=== PATIENT | female | born 1965 | race Caucasian/White ===

== ENCOUNTER → 2016-10-20 | Outpatient (REF) | payer OTHER ==
[~2016-10-20] MED LIST: IBUP800T23 PO; PERC5TAB6 PO; SIMV20TA2 PO; ZYVO100T PO
== END ==
LOC: M SFHCPLAZ 16:41
PROVIDERS: ATTEND Student in an Organized Health Care Education/Training Program
DX: Z12.4 Encounter for screening for malignant neoplasm of cervix (principal); R87.610 Atypical squamous cells of undetermined significance on cytologic smear of cervix (ASC-US)

== ENCOUNTER → 2016-11-16 | Outpatient (CLI) | payer OTHER ==
--- NOTE | 2016-11-16 12:20 | REPMRS ---
Patient History The patient states she has not had a clinical breast exam in over a year. Patient is postmenopausal. No known family history of cancer. Digital Woman Screen Mammo: November 16, 2016 - Exam #: [id number] Bilateral CC and MLO view(s) were taken. Technologist: Monica Jiménez, Technologist No prior studies available for comparison. FINDINGS: The breast tissue is heterogeneously dense. This may lower the sensitivity of mammography. New baseline exam, prior study was film screen exam in and no longer available. There is a moderate amount of residual fibroglandular tissue which is fairly symmetric. This may reduce the sensitivity of mammography. There is no dominant mass, architectural distortion, or clustered microcalcification typical of malignancy. Scattered lymph nodes are seen in the axilla. There are scattered, small, benign calcifications of doubtful clinical significance. ASSESSMENT: BI-RADS/ACR category 2 mammogram. Benign finding(s). Recommendation Routine screening mammogram in 1 year (for women over age 40). This mammogram was interpreted with the aid of an FDA-approved computer-aided dectection system. A. Negative x-ray reports should not delay biopsy if a dominant or clinically suspicious mass is present. B. Four to eight percent of cancers are not identified by mammography. C. Adenosis and dense breast may obscure an underlying neoplasm. Electronically Signed By: Juan Daniel Holloway MD 11/16/16 1796
== END ==
LOC: M WHC 11:26
PROVIDERS: ATTEND Family Medicine
DX: Z12.31 Encounter for screening mammogram for malignant neoplasm of breast (principal)

== ENCOUNTER → 2016-11-30 | Outpatient (REF) | payer OTHER ==
[2016-11-30 14:04] LABS: FREE T4 0.21 NG/DL (0.76-1.46)
== END ==
LOC: M LAB REF 13:17
PROVIDERS: ATTEND Internal Medicine Nephrology
DX: E03.9 Hypothyroidism, unspecified (principal)

== ENCOUNTER 2016-12-19 07:51 | Outpatient (RCR) | payer OTHER | END 2016-12-23 | LOC: M OT 07:51 | PROVIDERS: ATTEND Orthopaedic Surgery | DX: Z51.89 Encounter for other specified aftercare (principal); L08.9 Local infection of the skin and subcutaneous tissue, unspecified ==

== ENCOUNTER → 2017-01-04 | Outpatient (REF) | payer OTHER ==
[2017-01-04 14:23] LABS: FREE T4 0.42 NG/DL (0.76-1.46)
== END ==
LOC: M LAB REF 13:02
PROVIDERS: ATTEND Internal Medicine Nephrology
DX: E03.9 Hypothyroidism, unspecified (principal)

== ENCOUNTER → 2017-02-07 | Outpatient (REF) | payer OTHER ==
[2017-02-07 19:22] LABS: FREE T4 0.6 NG/DL (0.76-1.46)
== END ==
LOC: M LAB REF 16:58
PROVIDERS: ATTEND Internal Medicine Nephrology
DX: E03.9 Hypothyroidism, unspecified (principal)

== ENCOUNTER → 2017-02-08 | Outpatient (REF) | payer OTHER | LOC: M SFHCPLAZ 13:08 | PROVIDERS: ATTEND Internal Medicine Infectious Disease | DX: Z22.322 Carrier or suspected carrier of Methicillin resistant Staphylococcus aureus (principal) ==

== ENCOUNTER → 2017-03-21 | Outpatient (REF) | payer OTHER ==
[2017-03-21 12:14] LABS: FREE T4 1.05 NG/DL (0.76-1.46)
== END ==
LOC: M SFHCPLAZ 08:55
PROVIDERS: ATTEND Family Medicine
DX: E03.9 Hypothyroidism, unspecified (principal)

== ENCOUNTER → 2017-05-03 | Outpatient (REF) | payer OTHER ==
[~2017-05-03] MED LIST changes: +IBUP1TAB7 PO; -IBUP800T23 PO; +PERC5TAB12 PO; -PERC5TAB6 PO
[2017-05-03 17:04] LABS: FREE T4 1.09 NG/DL (0.76-1.46)
== END ==
LOC: M SFHCPLAZ 09:27
PROVIDERS: ATTEND Family Medicine
DX: E03.9 Hypothyroidism, unspecified (principal)

== ENCOUNTER → 2017-05-11 | Outpatient (REF) | payer OTHER ==
[2017-05-11 19:18] LABS: FREE T4 1.28 NG/DL (0.76-1.46)
== END ==
LOC: M LAB REF 18:39
PROVIDERS: ATTEND Internal Medicine Nephrology
DX: E03.9 Hypothyroidism, unspecified (principal)

== ENCOUNTER → 2017-07-12 | Outpatient (REF) | payer OTHER ==
[2017-07-12 13:05] LABS: FREE T4 1.13 NG/DL (0.76-1.46)
== END ==
LOC: M SFHCPLAZ 09:42
PROVIDERS: ATTEND Family Medicine
DX: E03.9 Hypothyroidism, unspecified (principal)

== ENCOUNTER → 2017-08-11 | Outpatient (REF) | payer OTHER ==
[2017-08-11 18:55] LABS: BACTERIA, URINE MOD AMOUNT; SQUAMOUS EPITHELIAL CELL URINE LARGE AMOUNT /hpf (SMALL AMT)
[2017-08-11 18:56] LABS: HYALINE CAST, URINE NONE SEEN /lpf (0-1); MICROSCOPIC EXAM PERFORMED
[2017-08-11 20:11] LABS: FREE T4 0.99 NG/DL (0.76-1.46)
== END ==
LOC: M LAB REF 17:09
PROVIDERS: ATTEND Internal Medicine Nephrology
DX: E03.9 Hypothyroidism, unspecified (principal)

== ENCOUNTER → 2017-08-23 | Outpatient (REF) | payer OTHER | LOC: M SMT 13:12 | PROVIDERS: ATTEND Nurse Practitioner Family | DX: R31.29 Other microscopic hematuria (principal) ==

== ENCOUNTER → 2017-08-31 | Outpatient (CLI) | payer OTHER ==
[~2017-08-31] MED LIST changes: +ISOVUE-370 76% 100ML VIAL (Q9967) As Ordered ONE
--- NOTE | 2017-09-01 08:28 | REP ---
CT of the abdomen and pelvis without and with IV contrast. There is no bowel contrast. After IV contrast dual phase imaging is performed initially during the renal cortical enhancement phase and later during the renal excretion phase of enhancement. Comparison is 06/25/2010. There are no renal, ureteral or bladder calculi. There is no hydronephrosis. 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 There are no renal solid or cystic masses. There are is no hydronephrosis. There is no perinephric stranding. There are no bladder calculi. No bladder polyps or masses are identified by CT. The visualized lung arevalo are unremarkable. The hepatic parenchyma, gallbladder, pancreas and spleen are normal size and unremarkable. The adrenals, abdominal aorta, bowel and mesentery are unremarkable. A tiny fat containing umbilical hernia is incidentally identified. There is no bowel distension or obstruction. The appendix has a normal appearance. Pelvis: The uterus and adnexa are unremarkable. Previously there were bilateral ovarian cysts. These are no longer identified. There is no diverticulosis or diverticulitis. There is mild wall thickening of the sigmoid colon. This is compatible with colitis in the appropriate clinical setting. Impression: There is wall thickening of the sigmoid colon compatible with colitis in the appropriate clinical setting. There is no hydronephrosis. There are no renal, ureteral or bladder calculi. There are no renal or bladder masses. There is no ascites or adenopathy. The gallbladder, appendix, uterus and adnexa are unremarkable. Signed by Luis Enrique Michael MD 09/01/2017 08:20 A
== END ==
LOC: M RAD 09:00
PROVIDERS: ATTEND Nurse Practitioner Family
DX: R31.29 Other microscopic hematuria (principal); R93.5 Abnormal findings on diagnostic imaging of other abdominal regions, including retroperitoneum
CPT/HCPCS: 74178; Q9967

== ENCOUNTER → 2017-11-01 | Outpatient (REF) | payer OTHER | LOC: M SFHCPLAZ 08:32 | DX: Z00.00 Encounter for general adult medical examination without abnormal findings (principal) ==

== ENCOUNTER → 2017-11-17 | Outpatient (CLI) | payer OTHER | LOC: M WHC 07:54 | DX: Z12.39 Encounter for other screening for malignant neoplasm of breast (principal) | CPT/HCPCS: 77067 ==

== ENCOUNTER → 2018-05-23 | Outpatient (REF) | payer OTHER | LOC: M SFHCPLAZ 09:10 | DX: E03.9 Hypothyroidism, unspecified (principal); E55.9 Vitamin D deficiency, unspecified | CPT/HCPCS: 84443 ==

== ENCOUNTER → 2019-01-21 | Outpatient (REF) | payer OTHER ==
[~2019-01-21] MED LIST changes: -ISOVUE-370 76% 100ML VIAL (Q9967) As Ordered ONE; -ZYVO100T PO; +ZYVO1TAB PO
[2019-01-21 15:56] LABS: FREE T4 0.79 NG/DL (0.76-1.46)
[2019-01-21 16:10] LABS: RUBELLA IgG QUALITATIVE IMMUNE (IMMUNE)
== END ==
LOC: M SFHCPLAZ 14:05
PROVIDERS: ATTEND Family Medicine
DX: Z02.1 Encounter for pre-employment examination (principal); E03.9 Hypothyroidism, unspecified

== ENCOUNTER → 2019-09-10 | Outpatient (REF) | payer OTHER ==
[~2019-09-10] MED LIST changes: -SIMV20TA2 PO; +SIMV20TA22 PO
[2019-09-10 16:02] LABS: CHOLESTEROL RISK RATIO 3.509 (<5); FREE T4 1.02 NG/DL (0.76-1.46); THYROID STIMULATING HORMONE 3.9 uIU/ML (0.358-3.740)
[2019-09-10 16:08] LABS: HEMOGLOBIN A1c 5.8 %
== END ==
LOC: M SFHCPLAZ 13:40
PROVIDERS: ATTEND Family Medicine
DX: Z13.220 Encounter for screening for lipoid disorders (principal); Z13.1 Encounter for screening for diabetes mellitus; E03.9 Hypothyroidism, unspecified

== ENCOUNTER 2019-10-16 09:49 | Day surgery (SDC) | payer OTHER ==
[~2019-10-16] VITALS: Ht 154.9 cm; Wt 70.2 kg
[~2019-10-16 09:49] MED LIST changes: +LEVO88TA3 PO; +LIDOCAINE 2% INJ 100 MG/5 ML SDV (FOR ANES.) As Ordered ONE; +NS 1,000 ML IV ONE; +VITA200028 PO
[2019-10-16] MEDS ORDERED: propofoL 200 MG/20 ML VIAL As Ordered ONE ×2 (10:48→11:34)
--- NOTE | 2019-10-16 11:44 | ROOR ---
Patient Name: Katie Martins Procedure Date: 10/16/2019 11:11 AM Date of : 1965 Age: 54 Room: [facility] Gender: Female Note Status: Finalized Procedure: Colonoscopy Indications: Screening for colorectal malignant neoplasm Providers: Luis Enrique Avina DO Referring MD: Trey Fournier Do, [facility] [place]ing Provider: Medicines: Propofol per Anesthesia Complications: No immediate complications. Estimated blood loss: Minimal. Procedure: Pre-Anesthesia Assessment: - Prior to the procedure, a History and Physical was performed, and patient medications and allergies were reviewed. The patient is competent. The risks and benefits of the procedure and the sedation options and risks were discussed with the patient. All questions were answered and informed consent was obtained. Patient identification and proposed procedure were verified by the physician, the nurse, the anesthesiologist and the injection mold technician in the endoscopy suite. Mental Status Examination: alert and oriented. Airway Examination: normal oropharyngeal airway and neck mobility. Respiratory Examination: clear to auscultation. CV Examination: normal. Prophylactic Antibiotics: The patient does not require prophylactic antibiotics. Prior Anticoagulants: The patient has taken no previous anticoagulant or antiplatelet agents. ASA Grade Assessment: II - A patient with mild systemic disease. After reviewing the risks and benefits, the patient was deemed in satisfactory condition to undergo the procedure. The anesthesia plan was to use monitored anesthesia care (MAC). Immediately prior to administration of medications, the patient was re-assessed for adequacy to receive sedatives. The heart rate, respiratory rate, oxygen saturations, blood pressure, adequacy of pulmonary ventilation, and response to care were monitored throughout the procedure. The physical status of the patient was re-assessed after the procedure. The Colonoscope was introduced through the anus and advanced to the cecum, identified by appendiceal orifice and ileocecal valve. The colonoscopy was performed without difficulty. The patient tolerated the procedure well. Findings: Non-bleeding internal hemorrhoids were found during retroflexion. The hemorrhoids were mild and Grade II (internal hemorrhoids that prolapse but reduce spontaneously). Five hyperplastic polyps were found in the sigmoid colon and ascending colon. The polyps were 3 to 7 mm in size. These polyps were removed with a jumbo cold forceps. Resection and retrieval were complete. Estimated blood loss was minimal. The exam was otherwise without abnormality on direct and retroflexion views. Impression: - Non-bleeding internal hemorrhoids. - Five 3 to 7 mm polyps in the sigmoid colon and in the ascending colon, removed with a jumbo cold forceps. Resected and retrieved. - The examination was otherwise normal on direct and retroflexion views. Recommendation: - Patient has a contact number available for emergencies. The signs and symptoms of potential delayed complications were discussed with the patient. Return to normal activities tomorrow. Written discharge instructions were provided to the patient. - Repeat colonoscopy in 3 - 5 years for surveillance based on pathology results. - Return to my office as previously scheduled. Luis Enrique Avina DO 10/16/2019 11:43:57 AM Electronically signed by Luis Enrique Avina DO Number of Addenda: 0 Note Initiated On: 10/16/2019 11:11 AM Estimated Blood Loss: Estimated blood loss was minimal.
[2019-10-16 12:11] VITALS: BP 117/85
== END 2019-10-16 12:13 | disposition home or self-care (01) ==
LOC: M OPP 09:49
PROVIDERS: ATTEND Surgery
DX: Z12.11 Encounter for screening for malignant neoplasm of colon (principal); D12.5 Benign neoplasm of sigmoid colon; D12.2 Benign neoplasm of ascending colon; K64.1 Second degree hemorrhoids; F17.210 Nicotine dependence, cigarettes, uncomplicated; Z79.899 Other long term (current) drug therapy; Z88.5 Allergy status to narcotic agent; Z88.8 Allergy status to other drugs, medicaments and biological substances

== ENCOUNTER → 2019-10-21 | Outpatient (CLI) | payer OTHER ==
[~2019-10-21] MED LIST changes: -LIDOCAINE 2% INJ 100 MG/5 ML SDV (FOR ANES.) As Ordered ONE; -NS 1,000 ML IV ONE
--- NOTE | 2019-10-21 15:25 | REPMRS ---
Patient History The patient states she has not had a clinical breast exam in over a year. Patient is postmenopausal. Family history of breast cancer at age 50 or over in maternal grandmother. No Hormone Replacement Therapy 3D TOMOSYNTHESIS WAS PERFORMED. The Jayla Florence lifetime risk for breast cancer is 7.8%. Digital Woman Screen Mammo: October 21, 2019 - Exam #: [id number] Bilateral CC and MLO view(s) were taken. Technologists: Nelia Slade RT; Carolyn Sanchez, Technologist Prior study comparison: November 17, 2017, digital woman screen mammo performed at [facility]. November 16, 2016, digital woman screen mammo performed at [facility]. FINDINGS: The breast tissue is heterogeneously dense. This may lower the sensitivity of mammography. There has been no change in the appearance of the mammogram from the prior studies. There is a moderate amount of residual fibroglandular tissue which is fairly symmetric. There is no interval development of dominant mass, areas of architectural distortion, or clustered microcalcification typical of malignancy. Assessment: BI-RADS/ACR category 1 mammogram. Negative Mammogram. Recommendation Routine screening mammogram in 1 year (for women over age 40). This mammogram was interpreted with the aid of an FDA-approved computer-aided dectection system. Electronically Signed By: Luis Enrique Moore MD 10/21/19 2995
== END ==
LOC: M WHC 13:58
PROVIDERS: ATTEND Student in an Organized Health Care Education/Training Program
DX: Z12.31 Encounter for screening mammogram for malignant neoplasm of breast (principal); Z78.0 Asymptomatic menopausal state

== ENCOUNTER → 2020-06-30 | Outpatient (REF) | payer OTHER | LOC: M SFHCPLAZ 09:20 | PROVIDERS: ATTEND Student in an Organized Health Care Education/Training Program | DX: E03.9 Hypothyroidism, unspecified (principal) ==

== ENCOUNTER → 2020-10-23 | Outpatient (CLI) | payer OTHER ==
--- NOTE | 2020-10-23 08:05 | REPMRS ---
Patient History The patient states she had a clinical breast exam in 08/2020 Patient is postmenopausal. Family history of breast cancer at age 50 or over in maternal grandmother. No Hormone Replacement Therapy Digital Woman Screen Mammo: October 23, 2020 - Exam #: [id number] Bilateral CC and MLO view(s) were taken. Technologist: Caty Christina, Technologist Prior study comparison: October 21, 2019, bilateral digital woman screen mammo performed at [facility]. November 17, 2017, digital woman screen mammo performed at [facility]. November 16, 2016, digital woman screen mammo performed at [facility]. FINDINGS: There are scattered fibroglandular densities. The [employer] volumetric breast density category is:B. There has been no change in the appearance of the mammogram from the prior studies. There is a mild amount of scattered fibroglandular density which is fairly symmetric. There is no interval development of dominant mass, architectural distortion, or grouped microcalcification suggestive of malignancy. 3-D tomosynthesis shows no additional findings. Assessment: BI-RADS/ACR category 1 mammogram. Negative Mammogram. Recommendation Routine screening mammogram of both breasts in 1 year (for women over age 40). This patient's [facility] Lifetime Breast Cancer Risk is estimated at 7.7 %. This mammogram was interpreted with the aid of an FDA-approved computer-aided dectection system. Electronically Signed By: Lucho Dove MD 10/23/20 0804
== END ==
LOC: M WHC 06:21
PROVIDERS: ATTEND Student in an Organized Health Care Education/Training Program
DX: Z12.31 Encounter for screening mammogram for malignant neoplasm of breast (principal)

== ENCOUNTER → 2021-04-28 | Outpatient (REF) | payer OTHER ==
[2021-04-28 14:34] LABS: FREE T4 1.03 NG/DL (0.76-1.46); THYROID STIMULATING HORMONE 1.28 uIU/ML (0.358-3.740)
[2021-04-29 13:28] LABS: BACTERIA, URINE AUTO 1+ (NEGATIVE); RBC, URINE AUTO 2 /HPF (0-3); SQUAMOUS EPITHELIAL CELL UR AU 1 /HPF (0-6); WBC, URINE AUTO 4 /HPF (0-3)
== END ==
LOC: M LAB REF 13:05
PROVIDERS: ATTEND Internal Medicine Nephrology
DX: E03.9 Hypothyroidism, unspecified (principal); N18.31 Chronic kidney disease, stage 3a; R31.29 Other microscopic hematuria

== ENCOUNTER → 2021-10-25 | Outpatient (REF) | LOC: M LABSMTC 13:35 | PROVIDERS: ATTEND Family Medicine | DX: Z11.52 Encounter for screening for COVID-19 (principal) ==

== ENCOUNTER → 2021-10-29 | Outpatient (REF) | payer OTHER | LOC: M SFHCPLAZ 10:59 | PROVIDERS: ATTEND Family Medicine | DX: Z53.9 Procedure and treatment not carried out, unspecified reason (principal) ==

== ENCOUNTER → 2021-10-30 | Outpatient (REF) | LOC: M LABSMTC 08:57 | PROVIDERS: ATTEND Family Medicine | DX: Z20.822 Contact with and (suspected) exposure to COVID-19 (principal) ==

== ENCOUNTER → 2021-11-22 | Outpatient (CLI) | payer OTHER ==
[2021-11-22 10:28] LABS: ALBUMIN 3.8 GM/DL (3.2-5.2); ALT/SGPT 27 U/L (12-78); BILIRUBIN,DIRECT < 0.1 MG/DL (0.0-0.2); BILIRUBIN,TOTAL 0.4 MG/DL (0.2-1.0); TOTAL PROTEIN 6.8 GM/DL (6.4-8.2)
== END ==
LOC: M LAB 09:18
PROVIDERS: ATTEND Student in an Organized Health Care Education/Training Program
DX: S39.012D Strain of muscle, fascia and tendon of lower back, subsequent encounter (principal)

== ENCOUNTER → 2021-12-13 | Outpatient (REF) | LOC: M EMP 16:21 | PROVIDERS: ATTEND Family Medicine | DX: Z20.822 Contact with and (suspected) exposure to COVID-19 (principal) ==

== ENCOUNTER → 2022-05-06 | Outpatient (REF) | payer OTHER | LOC: M SFHCPLAZ 15:21 | PROVIDERS: ATTEND Family Medicine | DX: Z53.20 Procedure and treatment not carried out because of patient's decision for unspecified reasons (principal) ==

== ENCOUNTER 2022-05-23 10:36 | Outpatient (RCR) | payer OTHER | END 2022-05-25 | LOC: M PT 10:36 | PROVIDERS: ATTEND Student in an Organized Health Care Education/Training Program | DX: S39.012D Strain of muscle, fascia and tendon of lower back, subsequent encounter (principal) ==

== ENCOUNTER → 2022-06-17 | Outpatient (CLI) | payer OTHER ==
[2022-06-17 09:46] LABS: APPEARANCE, URINE MANUAL CLEAR (CLEAR); BILIRUBIN, URINE MANUAL NEGATIVE (NEGATIVE); BLOOD URINE MANUAL POSITIVE (NEGATIVE); COLOR, URINE MANUAL YELLOW (YELLOW); GLUCOSE, URINE (UA) MANUAL NEGATIVE (NEGATIVE); KETONE, URINE MANUAL NEGATIVE (NEGATIVE); LEUKOCYTE ESTERASE, URINE MAN NEGATIVE (NEGATIVE); NITRITE, URINE MANUAL NEGATIVE (NEGATIVE); PROTEIN, URINE MANUAL NEGATIVE (NEGATIVE); UROBILINOGEN, URINE MANUAL NORMAL (NORMAL)
[2022-06-17 09:54] LABS: BACTERIA, URINE MOD AMOUNT; SQUAMOUS EPITHELIAL CELL URINE SMALL AMOUNT /hpf (SMALL AMT); WBC, URINE 0-1 /hpf (0-3)
[2022-06-17 09:55] LABS: TRANSITIONAL EPI CELLS, URINE SMALL AMOUNT /hpf
[2022-06-17 09:56] LABS: HYALINE CAST, URINE NONE SEEN /lpf (0-1); MUCUS, URINE SMALL AMOUNT (NEGATIVE)
[2022-06-17 10:37] LABS: BLOOD UREA NITROGEN 10 MG/DL (7-18); CALCIUM LEVEL 9.1 MG/DL (8.5-10.1); CARBON DIOXIDE LEVEL 27 MEQ/L (21-32); CHLORIDE LEVEL 110 MEQ/L (98-107); CHOLESTEROL LEVEL 218 MG/DL (<200); CREATININE FOR GFR 0.76 MG/DL (0.55-1.30); GLOMERULAR FILTRATION RATE > 60.0 (>51); GLUCOSE, FASTING 93 MG/DL (70-100); HDL CHOLESTEROL 71 MG/DL (>40); LDL CHOLESTEROL 114 MG/DL (<100); NON-HDL-C 147 MG/DL; POTASSIUM SERUM 4.4 MEQ/L (3.5-5.1); SODIUM LEVEL 139 MEQ/L (136-145); TRIGLYCERIDES LEVEL 163 MG/DL (<150)
[2022-06-17 11:08] LABS: TOTAL 25(OH) VITAMIN D 92.2 NG/ML (30.0-100.0)
== END ==
LOC: M LAB 08:51
PROVIDERS: ATTEND Student in an Organized Health Care Education/Training Program
DX: E55.9 Vitamin D deficiency, unspecified (principal)

== ENCOUNTER → 2022-07-18 | Outpatient (REF) | payer OTHER ==
[2022-07-18 16:06] LABS: APPEARANCE, URINE MANUAL CLEAR (CLEAR); COLOR, URINE MANUAL LT YELLOW (YELLOW)
[2022-07-18 16:07] LABS: BILIRUBIN, URINE MANUAL NEGATIVE (NEGATIVE); BLOOD URINE MANUAL POSITIVE (NEGATIVE); GLUCOSE, URINE (UA) MANUAL NEGATIVE (NEGATIVE); KETONE, URINE MANUAL NEGATIVE (NEGATIVE); LEUKOCYTE ESTERASE, URINE MAN NEGATIVE (NEGATIVE); NITRITE, URINE MANUAL NEGATIVE (NEGATIVE); PH,URINE MAN 5.5 UNITS (5.0 - 7.0); PROTEIN, URINE MANUAL NEGATIVE (NEGATIVE); SPECIFIC GRAVITY,URINE MANUAL 1.015 (1.002-1.035); UROBILINOGEN, URINE MANUAL NORMAL (NORMAL)
[2022-07-18 16:18] LABS: BACTERIA, URINE MOD AMOUNT; SQUAMOUS EPITHELIAL CELL URINE MOD AMOUNT /hpf (SMALL AMT)
[2022-07-18 16:19] LABS: HYALINE CAST, URINE NONE SEEN /lpf (0-1)
== END ==
LOC: M SMT 15:25
PROVIDERS: ATTEND Physician Assistant
DX: R31.29 Other microscopic hematuria (principal)

== ENCOUNTER → 2022-09-01 | Outpatient (REF) | payer OTHER ==
[2022-09-01 19:10] LABS: APPEARANCE, URINE MANUAL CLEAR (CLEAR); BILIRUBIN, URINE MANUAL NEGATIVE (NEGATIVE); BLOOD URINE MANUAL TRACE (NEGATIVE); COLOR, URINE MANUAL YELLOW (YELLOW); GLUCOSE, URINE (UA) MANUAL NEGATIVE (NEGATIVE); KETONE, URINE MANUAL NEGATIVE (NEGATIVE); LEUKOCYTE ESTERASE, URINE MAN TRACE (NEGATIVE); NITRITE, URINE MANUAL NEGATIVE (NEGATIVE); PROTEIN, URINE MANUAL NEGATIVE (NEGATIVE); SPECIFIC GRAVITY,URINE MANUAL 1.025 (1.002-1.035); UROBILINOGEN, URINE MANUAL NORMAL (NORMAL)
[2022-09-01 20:33] LABS: BACTERIA, URINE MOD AMOUNT; SQUAMOUS EPITHELIAL CELL URINE MOD AMOUNT /hpf (SMALL AMT)
== END ==
LOC: M SMT 16:41
PROVIDERS: ATTEND Physician Assistant
DX: B37.9 Candidiasis, unspecified (principal)

== ENCOUNTER → 2022-10-13 | Outpatient (CLI) | payer OTHER ==
[2022-10-13 16:46] LABS: BASO # 0.1 10^3/uL (0.0-0.2); BASO % 1.3 % (0.0-1.0); EOS # 0.2 10^3/uL (0.0-0.5); EOS % 2.6 % (0.0-3.0); HEMATOCRIT 40.2 % (36.0-47.0); HEMOGLOBIN 13.5 g/dl (12.0-15.5); LYMPH # 3.4 10^3/uL (1.5-5.0); LYMPH % 39.1 % (24.0-44.0); MEAN CORPUSCULAR HEMOGLOBIN 32.8 pg (27.0-33.0); MEAN CORPUSCULAR HGB CONC 33.6 g/dl (32.0-36.5); MEAN CORPUSCULAR VOLUME 97.6 fl (80.0-96.0); MONO # 0.5 10^3/uL (0.0-0.8); MONO % 5.8 % (2.0-8.0); NEUTROPHILS # 4.4 10^3/uL (1.5-8.5); NEUTROPHILS % 50.9 % (36.0-66.0); PLATELET COUNT, AUTOMATED 200 10^3/uL (150-450); RED BLOOD COUNT 4.12 10^6/uL (4.00-5.40); WHITE BLOOD COUNT 8.7 10^3/uL (4.0-10.0)
[2022-10-13 17:05] LABS: ALBUMIN 3.8 G/DL (3.2-5.2); ALKALINE PHOSPHATASE 96 U/L (46-116); ALT/SGPT 19 U/L (7.0-40); AST/SGOT 16 U/L (<34); BILIRUBIN,DIRECT 0.1 MG/DL (<0.4); BILIRUBIN,TOTAL 0.4 MG/DL (0.3-1.2); BLOOD UREA NITROGEN 19 MG/DL (9-23); CALCIUM LEVEL 9.4 MG/DL (8.5-10.1); CARBON DIOXIDE LEVEL 26 MMOL/L (20-31); CHLORIDE LEVEL 108 MMOL/L (98-107); CREATININE FOR GFR 0.81 MG/DL (0.55-1.30); GLOMERULAR FILTRATION RATE > 60.0 (>51); GLUCOSE, FASTING 92 MG/DL (60-100); PHOSPHORUS LEVEL 4.2 MG/DL (2.5-4.9); POTASSIUM SERUM 4.1 MMOL/L (3.5-5.1); SODIUM LEVEL 142 MMOL/L (136-145); TOTAL PROTEIN 6.3 G/DL (5.7-8.2)
== END ==
LOC: M LAB 15:41
PROVIDERS: ATTEND Podiatrist Foot & Ankle Surgery
DX: B35.1 Tinea unguium (principal)

== ENCOUNTER → 2023-03-27 | Outpatient (REF) | payer OTHER | LOC: M SFHCWAGY 15:34 | PROVIDERS: ATTEND Nurse Practitioner Family | DX: Z12.4 Encounter for screening for malignant neoplasm of cervix (principal); R87.610 Atypical squamous cells of undetermined significance on cytologic smear of cervix (ASC-US) ==

== ENCOUNTER → 2023-05-08 | Outpatient (CLI) | payer OTHER ==
[2023-05-08 13:58] LABS: BASO # 0.1 10^3/uL (0.0-0.2); BASO % 1.2 % (0.0-1.0); EOS # 0.3 10^3/uL (0.0-0.5); EOS % 3.7 % (0.0-3.0); HEMATOCRIT 43.6 % (36.0-47.0); HEMOGLOBIN 14.8 g/dl (12.0-15.5); LYMPH # 2.4 10^3/uL (1.5-5.0); MEAN CORPUSCULAR HEMOGLOBIN 32.5 pg (27.0-33.0); MEAN CORPUSCULAR HGB CONC 33.9 g/dl (32.0-36.5); MEAN CORPUSCULAR VOLUME 95.8 fl (80.0-96.0); MONO # 0.4 10^3/uL (0.0-0.8); MONO % 4.4 % (2.0-8.0); NEUTROPHILS % 61.5 % (36.0-66.0); PLATELET COUNT, AUTOMATED 205 10^3/uL (150-450); RED BLOOD COUNT 4.55 10^6/uL (4.00-5.40); WHITE BLOOD COUNT 8.2 10^3/uL (4.0-10.0)
[2023-05-08 14:01] LABS: BLOOD UREA NITROGEN 11 MG/DL (9-23); CALCIUM LEVEL 9.3 MG/DL (8.5-10.1); CARBON DIOXIDE LEVEL 28 MMOL/L (20-31); CHLORIDE LEVEL 108 MMOL/L (98-107); CHOLESTEROL LEVEL 225 MG/DL (<200); CHOLESTEROL RISK RATIO 3.07 (<5); CREATININE FOR GFR 0.77 MG/DL (0.55-1.30); GLOMERULAR FILTRATION RATE > 60.0 (>51); GLUCOSE, FASTING 93 MG/DL (60-100); HDL CHOLESTEROL 73.2 MG/DL (>40); NON-HDL-C 151.8 MG/DL; POTASSIUM SERUM 4.9 MMOL/L (3.5-5.1); SODIUM LEVEL 142 MMOL/L (136-145); THYROID STIMULATING HORMONE 1.759 uIU/ML (0.55-4.78); TRIGLYCERIDES LEVEL 264 MG/DL (<150)
== END ==
LOC: M PLALAB 09:20
PROVIDERS: ATTEND Student in an Organized Health Care Education/Training Program
DX: F17.210 Nicotine dependence, cigarettes, uncomplicated (principal); E03.9 Hypothyroidism, unspecified; E55.9 Vitamin D deficiency, unspecified

== ENCOUNTER 2023-06-13 14:56 | Emergency (ER) | payer OTHER ==
[~2023-06-13] VITALS: Ht 154.9 cm; Wt 66.8 kg
[2023-06-13 14:56] VITALS: BP 169/84; TEMP 98.9; O2SAT 98
== END 2023-06-13 16:47 | disposition home or self-care (01) ==
LOC: M ED 14:56
DX: Z48.02 Encounter for removal of sutures (principal); Z88.6 Allergy status to analgesic agent; Z88.5 Allergy status to narcotic agent; Z88.8 Allergy status to other drugs, medicaments and biological substances; Z79.899 Other long term (current) drug therapy

== ENCOUNTER → 2023-09-06 | Outpatient (REF) | payer OTHER ==
[2023-09-06 18:14] LABS: APPEARANCE, URINE HAZY (CLEAR); BACTERIA, URINE AUTO NEGATIVE (NEGATIVE); BILIRUBIN, URINE AUTO NEGATIVE (NEGATIVE); BLOOD, URINE BLOOD 1+ (NEGATIVE); COLOR, URINE YELLOW (YELLOW); GLUCOSE, URINE (UA) AUTO NEGATIVE (NEGATIVE); KETONE, URINE AUTO NEGATIVE (NEGATIVE); LEUKOCYTE ESTERASE, URINE AUTO 1+ (NEGATIVE); NITRITE, URINE AUTO NEGATIVE (NEGATIVE); PROTEIN, URINE AUTO NEGATIVE (NEGATIVE); RBC, URINE AUTO 1 /HPF (0-3); SPECIFIC GRAVITY URINE AUTO 1.013 (1.002-1.035); SQUAMOUS EPITHELIAL CELL UR AU 1 /HPF (0-6); UROBILINOGEN, URINE AUTO 0.2 mg/dL (0.0-2.0); WBC, URINE AUTO 1 /HPF (0-3)
== END ==
LOC: M SMT 17:15
PROVIDERS: ATTEND Physician Assistant
DX: R31.29 Other microscopic hematuria (principal)

== ENCOUNTER 2023-12-15 08:45 | Day surgery (SDC) | payer OTHER ==
[~2023-12-15] VITALS: Ht 154.9 cm; Wt 62.6 kg
[~2023-12-15 08:45] MED LIST changes: +ERGO500029 PO
[2023-12-15] MEDS ORDERED: LIDOCAINE 2% 100MG/5ML SDV (FOR ANES.) As Ordered ONE (09:13)
[2023-12-15] MEDS ORDERED: propofoL 200 MG/20 ML VIAL As Ordered ONE (09:13)
[2023-12-15] MEDS: NS 1,000 ML IV ONE (09:23)
[2023-12-15 10:14] VITALS: TEMP 96.8
[2023-12-15 10:27] VITALS: BP 111/69; O2SAT 98
== END 2023-12-15 10:40 | disposition home or self-care (01) ==
LOC: M OPP 08:45
PROVIDERS: ATTEND Surgery
DX: Z12.11 Encounter for screening for malignant neoplasm of colon (principal); Z86.010 Personal history of colon polyps; D12.2 Benign neoplasm of ascending colon; K63.5 Polyp of colon; K64.0 First degree hemorrhoids; F17.200 Nicotine dependence, unspecified, uncomplicated; Z79.890 Hormone replacement therapy; Z88.1 Allergy status to other antibiotic agents; Z88.5 Allergy status to narcotic agent; Z88.6 Allergy status to analgesic agent

== ENCOUNTER → 2024-09-06 | Outpatient (REF) | payer OTHER ==
[2024-09-06 17:44] LABS: APPEARANCE, URINE CLEAR (CLEAR); BACTERIA, URINE AUTO NEGATIVE (NEGATIVE); BILIRUBIN, URINE AUTO NEGATIVE (NEGATIVE); BLOOD, URINE BLOOD 1+ (NEGATIVE); COLOR, URINE YELLOW (YELLOW); GLUCOSE, URINE (UA) AUTO NEGATIVE (NEGATIVE); KETONE, URINE AUTO NEGATIVE (NEGATIVE); LEUKOCYTE ESTERASE, URINE AUTO TRACE (NEGATIVE); NITRITE, URINE AUTO NEGATIVE (NEGATIVE); PROTEIN, URINE AUTO NEGATIVE (NEGATIVE); RBC, URINE AUTO 11 /HPF (0-3); SPECIFIC GRAVITY URINE AUTO 1.006 (1.002-1.035); SQUAMOUS EPITHELIAL CELL UR AU 2 /HPF (0-6); UROBILINOGEN, URINE AUTO 0.2 mg/dL (0.0-2.0); WBC, URINE AUTO 7 /HPF (0-3)
== END ==
LOC: M SMT 16:56
PROVIDERS: ATTEND Physician Assistant
DX: R31.29 Other microscopic hematuria (principal)

== ENCOUNTER → 2024-10-08 | Outpatient (REF) | payer OTHER ==
[2024-10-08 15:23] LABS: APPEARANCE, URINE CLEAR (CLEAR); BACTERIA, URINE AUTO NEGATIVE (NEGATIVE); BILIRUBIN, URINE AUTO NEGATIVE (NEGATIVE); BLOOD, URINE BLOOD NEGATIVE (NEGATIVE); COLOR, URINE YELLOW (YELLOW); GLUCOSE, URINE (UA) AUTO NEGATIVE (NEGATIVE); KETONE, URINE AUTO NEGATIVE (NEGATIVE); LEUKOCYTE ESTERASE, URINE AUTO NEGATIVE (NEGATIVE); NITRITE, URINE AUTO NEGATIVE (NEGATIVE); PROTEIN, URINE AUTO NEGATIVE (NEGATIVE); RBC, URINE AUTO 0 /HPF (0-3); SPECIFIC GRAVITY URINE AUTO 1.013 (1.002-1.035); SQUAMOUS EPITHELIAL CELL UR AU 2 /HPF (0-6); UROBILINOGEN, URINE AUTO 0.2 mg/dL (0.0-2.0); WBC, URINE AUTO 1 /HPF (0-3)
== END ==
LOC: M SMT 14:38
PROVIDERS: ATTEND Physician Assistant
DX: R31.29 Other microscopic hematuria (principal)

== ENCOUNTER → 2024-12-20 | Outpatient (CLI) | payer OTHER ==
[2024-12-20 19:02] LABS: BASO # 0.2 10^3/uL (0.0-0.2); BASO % 1.5 % (0.0-1.0); EOS # 0.1 10^3/uL (0.0-0.5); EOS % 1.4 % (0.0-3.0); HEMATOCRIT 38.4 % (36.0-47.0); HEMOGLOBIN 13.2 g/dl (12.0-15.5); LYMPH # 3.6 10^3/uL (1.5-5.0); LYMPH % 35.3 % (24.0-44.0); MEAN CORPUSCULAR HGB CONC 34.4 g/dl (32.0-36.5); MEAN CORPUSCULAR VOLUME 101.9 fl (80.0-96.0); MONO # 0.6 10^3/uL (0.0-0.8); MONO % 5.4 % (2.0-8.0); NEUTROPHILS # 5.8 10^3/uL (1.5-8.5); PLATELET COUNT, AUTOMATED 225 10^3/uL (150-450); RED BLOOD COUNT 3.77 10^6/uL (4.00-5.40); WHITE BLOOD COUNT 10.3 10^3/uL (4.0-10.0)
[2024-12-20 19:33] LABS: ALBUMIN 4.3 G/DL (3.2-5.2); BILIRUBIN,TOTAL 0.7 MG/DL (0.3-1.2); CALCIUM LEVEL 9.4 MG/DL (8.5-10.1); CREATININE FOR GFR 1.09 MG/DL (0.55-1.30); GLOMERULAR FILTRATION RATE 54.7 (>51); POTASSIUM SERUM 4.6 MMOL/L (3.5-5.1); TOTAL PROTEIN 7.7 G/DL (5.7-8.2)
[2024-12-20 19:35] LABS: FREE T4 0.54 NG/DL (0.89-1.76)
== END ==
LOC: M PLALAB 15:17
PROVIDERS: ATTEND Nurse Practitioner Family
DX: E03.9 Hypothyroidism, unspecified (principal); R60.0 Localized edema

== ENCOUNTER → 2025-01-21 | Outpatient (CLI) | payer OTHER | LOC: M RAD 14:32 | PROVIDERS: ATTEND Nurse Practitioner Family | DX: E03.9 Hypothyroidism, unspecified (principal) ==

== ENCOUNTER → 2025-02-10 | Outpatient (CLI) | payer OTHER ==
[2025-02-10 14:35] LABS: FREE T4 1.33 NG/DL (0.89-1.76)
[2025-02-10 14:36] LABS: THYROID STIMULATING HORMONE 3.802 uIU/ML (0.55-4.78)
[2025-02-10 14:41] LABS: THYROID PEROXIDASE ANTIBODY < 28.0 U/ML (<60.0)
== END ==
LOC: M PLALAB 11:07
PROVIDERS: ATTEND Nurse Practitioner Family
DX: E03.9 Hypothyroidism, unspecified (principal)

== ENCOUNTER → 2025-04-21 | Outpatient (REF) | payer OTHER | LOC: M SFHCPLAZ 14:04 | PROVIDERS: ATTEND Student in an Organized Health Care Education/Training Program | DX: E78.5 Hyperlipidemia, unspecified (principal); E55.9 Vitamin D deficiency, unspecified; R31.29 Other microscopic hematuria; N18.30 Chronic kidney disease, stage 3 unspecified; E03.9 Hypothyroidism, unspecified ==

== ENCOUNTER → 2025-05-23 | Outpatient (CLI) | payer OTHER ==
[2025-05-23 16:29] LABS: BASO # 0.1 10^3/uL (0.0-0.2); BASO % 1.1 % (0.0-1.0); EOS # 0.2 10^3/uL (0.0-0.5); EOS % 2.0 % (0.0-3.0); LYMPH # 3.6 10^3/uL (1.5-5.0); LYMPH % 35.0 % (24.0-44.0); MONO # 0.7 10^3/uL (0.0-0.8); MONO % 7.1 % (2.0-8.0); NEUTROPHILS # 5.6 10^3/uL (1.5-8.5); NEUTROPHILS % 54.6 % (36.0-66.0); PLATELET COUNT, AUTOMATED 249 10^3/uL (150-450)
[2025-05-23 16:43] LABS: ALT/SGPT 16.0 U/L (7.0-40); AST/SGOT 15.0 U/L (<34); CALCIUM LEVEL 9.7 MG/DL (8.3-10.6); CARBON DIOXIDE LEVEL 28.0 MMOL/L (20-31); CHLORIDE LEVEL 110.0 MMOL/L (98-107); CHOLESTEROL LEVEL 218.0 MG/DL (<200); CHOLESTEROL RISK RATIO 2.54 (<5); CREATININE FOR GFR 0.95 MG/DL (0.55-1.30); GLOMERULAR FILTRATION RATE 68.6 (>45); LDL CHOLESTEROL 108.1 MG/DL (<100); NON-HDL-C 132.3 MG/DL; POTASSIUM SERUM 4.5 MMOL/L (3.5-5.1); SODIUM LEVEL 144.0 MMOL/L (136-145); TRIGLYCERIDES LEVEL 121.0 MG/DL (<150)
[2025-05-23 16:47] LABS: TOTAL 25(OH) VITAMIN D 86.8 NG/ML (20.0-100.0)
[2025-05-23 16:50] LABS: FREE T4 1.54 NG/DL (0.89-1.76)
== END ==
LOC: M PLALAB 12:46
PROVIDERS: ATTEND Student in an Organized Health Care Education/Training Program
DX: E78.5 Hyperlipidemia, unspecified (principal); E55.9 Vitamin D deficiency, unspecified; R31.29 Other microscopic hematuria; N18.30 Chronic kidney disease, stage 3 unspecified; E03.9 Hypothyroidism, unspecified

== ENCOUNTER → 2025-05-23 | Outpatient (CLI) | payer OTHER ==
[2025-05-23 16:46] LABS: FREE T4 1.37 NG/DL (0.89-1.76)
== END ==
LOC: M PLALAB 12:44
PROVIDERS: ATTEND Nurse Practitioner Family
DX: E03.9 Hypothyroidism, unspecified (principal)

== ENCOUNTER → 2025-09-08 | Outpatient (REF) | payer OTHER ==
[2025-09-08 13:27] LABS: APPEARANCE, URINE CLEAR (CLEAR); BACTERIA, URINE AUTO NEGATIVE (NEGATIVE); BILIRUBIN, URINE AUTO NEGATIVE (NEGATIVE); BLOOD, URINE BLOOD 1+ (NEGATIVE); GLUCOSE, URINE (UA) AUTO NEGATIVE (NEGATIVE); KETONE, URINE AUTO NEGATIVE (NEGATIVE); LEUKOCYTE ESTERASE, URINE AUTO NEGATIVE (NEGATIVE); NITRITE, URINE AUTO NEGATIVE (NEGATIVE); PROTEIN, URINE AUTO NEGATIVE (NEGATIVE); RBC, URINE AUTO 0 /HPF (0-3); SPECIFIC GRAVITY URINE AUTO 1.006 (1.002-1.035); SQUAMOUS EPITHELIAL CELL UR AU 0 /HPF (0-6); UROBILINOGEN, URINE AUTO 0.2 mg/dL (0.0-2.0); WBC, URINE AUTO 0 /HPF (0-3)
== END ==
LOC: M SMT 12:39
PROVIDERS: ATTEND Physician Assistant
DX: R31.29 Other microscopic hematuria (principal)